=== PATIENT | male | born 1965 | race American Indian/Alaskan Native ===

== ENCOUNTER 2020-01-21 21:19 | Emergency (ER) | payer OTHER ==
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
[2020-01-22 00:20] VITALS: BP 150/90
== END 2020-01-22 00:19 | disposition left against medical advice (07) ==
LOC: ED 21:19
DX: M54.2 Cervicalgia (principal); M25.561 Pain in right knee; Z53.21 Procedure and treatment not carried out due to patient leaving prior to being seen by health care provider

== ENCOUNTER 2020-08-31 01:11 | Emergency (ER) | payer MEDICAID, OTHER ==
--- NOTE | 2020-08-31 01:19 | Event Note ---
ED Screening Note Date of service: 08/31/20 Time: 01:18 ED Screening Note: 5-year-old male presents to the ER today complaining of a 5-hour erection. Patient states that he goes to the clinic called [facility] where he gets ICI injections to help with erections. He states that you go as needed. He states that he had an injection this morning. He states that he recently started doing this about a week now and is never had any issues with priapism in the past. He denies any penile pain, testicular pain or swelling. This initial assessment/diagnostic orders/clinical plan/treatment(s) is/are subject to change based on patients health status, clinical progression and re- assessment by fellow clinical providers in the ED. Further treatment and workup at subsequent clinical providers discretion. Patient/guardian urged not to elope from the ED as their condition may be serious if not clinically assessed and managed. Initial orders include:
--- NOTE | 2020-08-31 01:37 | Emergency Department Report ---
ED General Adult HPI - General Chief complaint: Urogenital-Male Stated complaint: ERECTION X5HR PUI?: No Time Seen by Provider: 08/31/20 01:25 Source: patient, RN notes reviewed Mode of arrival: Ambulatory Limitations: No Limitations - History of Present Illness Initial comments: The patient was evaluated in the emergency department for symptoms described in the history of present illness. He/she was evaluated in the context of the global COVID-19 pandemic, which necessitated consideration that the patient might be at risk for infection with the virus that causes COVID-19. Institutional protocols and algorithms that pertain to the evaluation of patients at risk for COVID-19 are in a state of rapid change based on infor mation released by regulatory bodies including the CDC and federal and state organizations. These policies and algorithms were followed during the patient's care in the emergency department. Please note that these policies, procedures and recommendations changed on a rapid basis. The patient is a 55-year-old gentleman. He is not known to myself previously. He has a history of stroke, erectile dysfunction, and hypertension. Patient recently started going to [facility], and performed a self injected ICI injection at 4:00 PM yesterday. He does not know what medication he injected. He was not cleared for sex, or for this sort of intervention by her primary care doctor or urologist. He complains of persistent erection, and penile pain, without additional injuries or complaints. He denies additional complaints otherwise. -: hour(s) Location: genitals Quality: aching Consistency: constant Improves with: none Worsens with: none Associated Symptoms: denies other symptoms - Related Data Previous Rx's Medication Instructions Recorded Last Taken Type HYDROcodone/APAP 5-325 [[place] 1 each PO Q6HR PRN #10 tablet 03/17/15 Unknown Rx 5-325 mg TAB] Ibuprofen [Motrin 600 MG tab] 600 mg PO Q8H PRN #30 tablet 03/17/15 Unknown Rx Lisinopril/Hydrochlorothiazide 1 tab PO QDAY #30 tab 03/17/15 Unknown Rx [Zestoretic 20-25 mg] Simvastatin (Nf) [Zocor TAB] 20 mg PO QHS #30 tablet 03/17/15 Unknown Rx Allergies Allergy/AdvReac Type Severity Reaction Status Date / Time No Known Allergies Allergy Verified 01/21/20 21:54 ED Review of Systems ROS: Stated complaint: ERECTION X5HR Other details as noted in HPI Comment: All other systems reviewed and negative Genitourinary: as per HPI, other (Priapism/erection) ED Past Medical Hx - Past Medical History Previous Medical History?: Yes Hx Hypertension: Yes Hx CVA: Yes (old left side weakness) Additional medical history: Erectile Dysfunction - Surgical History Past Surgical History?: Yes Additional Surgical History: left ankle fx - Social History Smoking Status: Current Every Day Smoker Substance Use Type: None - Medications Home Medications: Home Medications Medication Instructions Recorded Confirmed Last Taken Type HYDROcodone/APAP 5-325 [[place] 1 each PO Q6HR PRN #10 tablet 03/17/15 Unknown Rx 5-325 mg TAB] Ibuprofen [Motrin 600 MG tab] 600 mg PO Q8H PRN #30 tablet 03/17/15 Unknown Rx Lisinopril/Hydrochlorothiazide 1 tab PO QDAY #30 tab 03/17/15 Unknown Rx [Zestoretic 20-25 mg] Simvastatin (Nf) [Zocor TAB] 20 mg PO QHS #30 tablet 03/17/15 Unknown Rx ED Physical Exam - General Limitations: No Limitations General appearance: alert, anxious - Head Head exam: Present: atraumatic, normocephalic - Eye Eye exam: Present: normal appearance, EOMI. Absent: nystagmus - ENT ENT exam: Present: normal exam, normal orophraynx, mucous membranes moist, normal external ear exam - Neck Neck exam: Present: normal inspection, full ROM. Absent: tenderness - Respiratory Respiratory exam: Present: normal lung sounds bilaterally. Absent: respiratory distress, wheezes, rales, rhonchi, stridor, decreased breath sounds - Cardiovascular Cardiovascular Exam: Present: regular rate, normal rhythm, normal heart sounds. Absent: bradycardia, tachycardia, irregular rhythm, systolic murmur, diastolic murmur, rubs, gallop - GI/Abdominal GI/Abdominal exam: Present: soft. Absent: distended, tenderness, guarding, rebound, rigid, pulsatile mass - Rectal Rectal exam: Present: deferred - exam: Present: normal inspection, other (Priapism is noted. Chaperoned by nurse Oneil) - Extremities Exam Extremities exam: Present: normal inspection, full ROM, other (2+ pulses noted in the bilateral upper and lower extremities. There is no palpable cord. negative Homans sign. Muscular compartments are soft. The pelvis is stable.). Absent: pedal edema, calf tenderness - Back Exam Back exam: Present: normal inspection, full ROM. Absent: tenderness, CVA tenderness (R), CVA tenderness (L), paraspinal tenderness, vertebral tenderness - Neurological Exam Neurological exam: Present: alert, normal gait, other (No facial droop. Tongue midline. Extraocular movements intact bilaterally. Facial sensation intact to light touch in V1, V2, V3 distribution bilaterally. 5 and a 5 strength in 4 extremities. Sensation intact to light touch in 4 extremities.) - Psychiatric Psychiatric exam: Present: anxious - Skin Skin exam: Present: warm, dry, intact, normal color. Absent: rash ED Course Vital Signs 08/31/20 01:15 Temperature 98.1 F Pulse Rate 82 Respiratory 16 Rate Blood Pressure 176/119 O2 Sat by Pulse 96 Oximetry - Reevaluation(s) Reevaluation #1: 08/31/20 01:43 Differential diagnosis, including but not limited to: Priapism Assessment and plan: 55-year-old gentleman, with priapism for approximately 10 hours. Received call back from Marya Zepeda, business representative of [facility]. She reports the patient was prescribed 10 units T-106 and nothing else we will treat with terbutaline, hydromorphone, and Sudafed. Have contacted [place] [facility] and am currently discussing the case with Papo patient has provided verbal and written informed consent for penile aspiration if priapism is refractory to medications. Conversation witnessed by nurse Oneil. [facility] [place] [facility] does not have any specific recommendations on this medication, as they are not familiar with it, it is not in the database, it did not show up on [facility], or on the Google search i have looked up the patients clinic: [email or web address] the website does not specify what medications were given or are available Reevaluation #2: 08/31/20 01:56 medication is paperverine and phentolamine/aloprostadil (trimix) as per communication from staff from clinic recontacted poison control center who recommend symptomatic supportive care they do not recommend a specific antidote but indicated that injection of alpha acting agents such as phenylepherine may be helpful In addition, patient was supposed to only administer 10 units of the trimix medication but apparently administered 20 units. 08/31/20 01:57 08/31/20 01:59 08/31/20 04:06 Patient was successfully detumescence with priapism aspiration. Please see procedure note. Dressing to be applied by nursing staff. Patient to follow-up with outpatient urology. I advised patient to avoid injection of ICI in the future. I also advised patient to avoid sexual activity until cleared to resume by a primary care doctor or urologist. - Penile Procedure Consent Obtained: verbal consent, written consent, emergent situation Time Out Performed: Yes Indication: priapism management Procedural Sedation: No Local Anesthesia Used: Penile Nerve Block Amount of Anesthesia Used (mls): 10 Priapism Management: aspiration (15 cc), phenylephrine injection (133) Complications: none Patient Tolerated Procedure: well Additional Comments: After written consent was obtained, with extensive discussion of risks, benefits, alternatives and complications, patient was given trial of conservativ e therapy with terbutaline x2, and Sudafed. This was unsuccessful. Therefore, we proceeded with corpus cavernosa aspiration. The area was prepped in typical aseptic fashion. A penile nerve block was performed using 1% lidocaine, 10 cc, with a 26-gauge needle. Then, we directed our attention to the right corpus cavernosum. At approximately 9:00, appropriate landmarks were identified, and a 20-gauge needle was inserted, with 12 cc aspiration of blood. We then injected 1 cc of phenylephrine solution. Right corpus cavernosum partially detumesced. Patient still erect, therefore, turned our attention to the left corpus cavernosum. At approximately 3:00, 20-gauge needle was inserted after appropriate identification of landmarks, and approximately 1 to 2 cc of phenylephrine solution were injected, and irrigated into the corpus cavernosum. Then, approximately 30 cc of blood were expressed. The patient experienced accessible detumescence of his priapism. The patient tolerated this procedure well. ED Medical Decision Making - Lab Data Vital Signs 08/31/20 01:15 Temperature 98.1 F Pulse Rate 82 Respiratory 16 Rate Blood Pressure 176/119 O2 Sat by Pulse 96 Oximetry Critical care attestation.: If time is entered above; I have spent that time in minutes in the direct care of this critically ill patient, excluding procedure time. ED Disposition Clinical Impression: Priapism, Elevated blood pressure reading Disposition: DC-01 TO HOME OR SELFCARE Is pt being admited?: No Does the pt Need Aspirin: No Condition: Good Instructions: Priapism, Hypertension, Adult Additional Instructions: Recommend that patient immediately discontinue all penile injections, intracavernosal injection ( TriMix or Papaverine, Phentolamine and Alprostadil is the trade and generic name respectively of the injectable medication), and not participate in sex until cleared to do so by a primary care doctor. Recommend follow-up with a urologist within the next 2 days. Recommend follow-up with a primary care doctor within the next week. Patient was found to have elevated blood pressure while here in the emergency room. Long-term complications of hypertension and elevated blood pressure include stroke, heart attack, disability, paralysis, loss of quality of life. Continuing to use the penile injection medication for erectile dysfunction May result in persistent/intractable priapism, which over time can cause sexual impotence, disability, and problems with urination. Please return to the emergency room right away with new pain, worsening pain, migration of pain, projectile vomiting, change in mental status, confusion, inability to tolerate liquid feeds, new, worsened or different symptoms not present on the initial emergency room evaluation. Referrals: SILVIO DAWN MD [Staff Physician] - 7-10 days [facility] [Provider Group] - 2-3 Days
[2020-08-31] MEDS ORDERED: TERBUTALINE 1 MG/1 ML INJ SUB-Q ONE ×2 (01:38→02:29)
[2020-08-31] MEDS ORDERED: HYDROmorphone 1 MG/1 ML INJ IM ONE (01:39)
[2020-08-31] MEDS ORDERED: PSEUDOEPHEDRINE 30 MG TAB PO ONE (01:39)
[2020-08-31] MEDS ORDERED: PHENYLEPHRINE 1 MG, SODIUM CHLORIDE P/F VIAL 10 ML 9.9 ML IJ**NOT IV ONE (02:41)
[2020-08-31] MEDS ORDERED: LIDOCAINE (1%) 10 MG/1 ML VIAL 20 ML MDV INFILTRATI ONE (02:41)
[2020-08-31] MEDS ORDERED: SODIUM CHLORIDE 0.9% IJ**NOT IV SCH (03:00)
[2020-08-31] MEDS ORDERED: PHENYLEPHRINE IJ**NOT IV SCH (03:00)
[2020-08-31] MEDS ORDERED: DEXTROSE 50% IN WATER (25GM) 50 ML SYRINGE IV ONE (03:13)
[2020-08-31 04:30] VITALS: BP 117/80
[2020-08-31] MEDS ORDERED: POVIDONE-IODINE OINTMENT 28.35 GM TP SCH (08:00)
== END 2020-08-31 04:30 | disposition home or self-care (01) ==
LOC: ED 01:11
DX: N48.30 Priapism, unspecified (principal); R03.0 Elevated blood-pressure reading, without diagnosis of hypertension; F17.200 Nicotine dependence, unspecified, uncomplicated; I10 Essential (primary) hypertension; Z79.899 Other long term (current) drug therapy; Z86.73 Personal history of transient ischemic attack (TIA), and cerebral infarction without residual deficits; Z98.890 Other specified postprocedural states
CPT/HCPCS: 54220; 96372; 99283; J1170; J2370; J3105

== ENCOUNTER 2020-09-23 22:28 | Emergency (ER) | payer MEDICAID ==
--- NOTE | 2020-09-23 23:02 | Event Note ---
ED Screening Note Date of service: 09/23/20 Time: 22:55 ED Screening Note: Pt is a 55 y/o aam who presents for priapism for past 5 hrs, states he took and otc ICM . pt states hx of same 1 month ago. pt took pseudoephedrine otc x one today states not improving. This initial assessment/diagnostic orders/clinical plan/treatment(s) is/are subject to change based on patients health status, clinical progression and re- assessment by fellow clinical providers in the ED. Further treatment and workup at subsequent clinical providers discretion. Patient/guardian urged not to elope from the ED as their condition may be serious if not clinically assessed and managed. Initial orders include:
[2020-09-24] MEDS ORDERED: TERBUTALINE 1 MG/1 ML INJ SUB-Q ONE (00:15)
[2020-09-24] MEDS ORDERED: PSEUDOEPHEDRINE 30 MG TAB PO ONE (00:15)
[2020-09-24] MEDS ORDERED: SODIUM CHLORIDE 0.9% 1000 ML 1,000 ML IV ONE (00:15)
--- NOTE | 2020-09-24 00:18 | Emergency Department Report ---
HPI - General Chief Complaint: Urogenital-Male Time Seen by Provider: 09/23/20 23:57 - HPI HPI: This is a 55-year-old male who presents to the emergency department with a complaint of having an erection for greater than 6 hours. The patient did an intracavernosal injection in order to have sexual intercourse. He says that he took some Sudafed with some transient relief but the erection returned. Because of the erection the patient has been having some difficulty with urination. Patient has a history of a CVA with some residual left-sided weakness and hypertension. The patient was here on 08/31/2020 for the same complaint of priapism. He required cavernosal aspiration and phenylephrine injection for resolution at that time. Patient is a tobacco smoker but denies any illicit drug use. No recent travel or sick contacts at home. He denies any current penile pain. ED Past Medical Hx - Past Medical History Previous Medical History?: Yes Hx Hypertension: Yes Hx CVA: Yes (old left side weakness) Additional medical history: Erectile Dysfunction - Surgical History Past Surgical History?: Yes Additional Surgical History: left ankle fx - Social History Smoking Status: Current Every Day Smoker Substance Use Type: None - Medications Home Medications: Home Medications Medication Instructions Recorded Confirmed Last Taken Type HYDROcodone/APAP 5-325 [[place] 1 each PO Q6HR PRN #10 tablet 03/17/15 Unknown Rx 5-325 mg TAB] Ibuprofen [Motrin 600 MG tab] 600 mg PO Q8H PRN #30 tablet 03/17/15 Unknown Rx Lisinopril/Hydrochlorothiazide 1 tab PO QDAY #30 tab 03/17/15 Unknown Rx [Zestoretic 20-25 mg] Simvastatin (Nf) [Zocor TAB] 20 mg PO QHS #30 tablet 03/17/15 Unknown Rx ED Review of Systems ROS: Stated complaint: MALE PROBLEM Other details as noted in HPI Comment: All other systems reviewed and negative Constitutional: denies: chills, fever Eyes: denies: eye pain, vision change ENT: denies: ear pain, throat pain Respiratory: denies: cough, shortness of breath Cardiovascular: denies: chest pain, palpitations Gastrointestinal: denies: abdominal pain, vomiting Genitourinary: other (priapism). denies: dysuria, discharge Musculoskeletal: denies: back pain, arthralgia Skin: denies: rash, lesions Neurological: denies: headache, weakness Physical Exam - Physical Exam Vital Signs: Vital Signs 09/23/20 23:20 Temperature 97.9 F Pulse Rate 98 H Respiratory 16 Rate Blood Pressure 161/112 O2 Sat by Pulse 98 Oximetry Physical Exam: GENERAL: The patient is well-developed well-nourished. HENT: Normocephalic. Atraumatic. Patient has moist mucous membranes. EYES: Extraocular motions are intact. NECK: Supple. Trachea is midline. CHEST/LUNGS: Clear to auscultation. There is no respiratory distress noted. HEART/CARDIOVASCULAR: Regular. There is no tachycardia. There is no murmur. ABDOMEN: Abdomen is soft, nontender. Patient has normal bowel sounds. SKIN: Skin is warm and dry. NEURO: The patient is awake, alert, and oriented. The patient is cooperative. The patient has no focal neurologic deficits. Normal speech. MUSCULOSKELETAL: There is no tenderness or deformity. There is no limitation range of motion. : Patient has priapism. ED Course Vital Signs 09/23/20 23:20 Temperature 97.9 F Pulse Rate 98 H Respiratory 16 Rate Blood Pressure 161/112 O2 Sat by Pulse 98 Oximetry - Reevaluation(s) Reevaluation #1: 09/24/20 01:36 The terbutaline and Sudafed did not help and/or resolve the patient's priapism. The patient would like to move forward with cavernosal aspiration. Risks of the procedure have been discussed with the patient. A dorsal penile nerve block has been done. I am waiting for the phenylephrine from pharmacy and then the patient will have cavernosal aspiration. - Nerve Block Consent Obtained: verbal consent Time Out Performed: Yes Local Anesthetic Used: Lidocaine 1% Amount of anesthesia used: 6 Nerve Blocks: other (Dorsal penile block) Procedure Successful: Yes Complications: none Patient Tolerated Procedure: well - Penile Procedure Consent Obtained: verbal consent Time Out Performed: Yes Indication: priapism management Procedural Sedation: No Local Anesthesia Used: Lidocaine 1% without EPI Amount of Anesthesia Used (mls): 6 Priapism Management: aspiration, phenylephrine injection Complications: none Patient Tolerated Procedure: well ED Medical Decision Making - Medical Decision Making This patient presents with priapism that has been lasting greater than 6 hours. He has a history of this previously. The patient was given some gentle IV fluid resuscitation, a dose of pseudoephedrine, and a subcutaneous injection of terbutaline. He was reevaluated about 30 to 45 minutes later with no improvement or resolution of his priapism. We then discussed the procedure of doing a dorsal penile block followed by a bilateral cavernosal aspiration and phenylephrine injection. All of the risks, the patient has a normal decision-making capacity, and I was given verbal consent to proceed. 3 mL of 1% lidocaine without epinephrine was injected at the 2:00 and 10:00 positions to the dorsal penis. The patient was rechecked about 10 minutes later and anesthesia was obtained with the nerve block. An 18-gauge needle was placed in the left lateral penile shaft, within the corpus cavernosum, at the 3 o'clock position. About 15 to 20 cc of blood was drained/aspirated. The corpus cavernosum was then flushed with 2 mL of phenylephrine. The process was repeated to the right lateral penile shaft, at the 9 o'clock position. Sterile procedure was used. The patient was reevaluated multiple times over the next 15 to 30 minutes and the patient had detumescence. The patient was reevaluated for another 30 minutes or so and there was no return of priapism. Vital signs have been reassuring throughout his ED course including being afebrile. The patient was instructed to monitor for any signs of infection. He was instructed to avoid any further intracavernosal injections and avoid any sexual intercourse or attempts at sexual arousal until follow-up with a urologist. He was given outpatient referral for Dr. Pena of [facility]. He will return to the emergency department with any worsening of his symptoms or with any acute distress. Critical Care Time: No Critical care attestation.: If time is entered above; I have spent that time in minutes in the direct care of this critically ill patient, excluding procedure time. ED Disposition Clinical Impression: Priapism Hypertension Qualifiers: Hypertension type: essential hypertension Qualified Code(s): I10 - Essential (primary) hypertension Disposition: TO HOME OR SELFCARE Is pt being admited?: No Condition: Stable Instructions: Priapism, Hypertension, Adult, Hypertension (ED) Additional Instructions: Please follow-up with a urologist in the next few days regarding your history of erectile dysfunction, your recurrent episodes of priapism (prolonged erection), and your use of intracavernosal injections. I have given you a referral for a local urologist, Dr. Pena. I recommend avoiding any intracavernosal injections or any sexual intercourse until follow-up with the urologist. Return to the emergency department with any worsening of your symptoms, new or concerning symptoms not addressed during this current emergency department visit, or with any acute distress. Referrals: PRIMARY CARE, [Primary Care Provider] - 2-3 Days MARIA EUGENIA PENA MD [Staff Physician] - 2-3 Days Time of Disposition: 02:32
[2020-09-24] MEDS ORDERED: PHENYLEPHRINE 1 MG, SODIUM CHLORIDE P/F VIAL 10 ML 9.9 ML IJ**NOT IV ONE (01:14)
[2020-09-24] MEDS ORDERED: LIDOCAINE (1%) 10 MG/1 ML VIAL 20 ML MDV INFILTRATI ONE (01:14)
[2020-09-24 04:15] VITALS: BP 141/94
== END 2020-09-24 03:10 | disposition home or self-care (01) ==
LOC: ED 22:28
DX: N48.30 Priapism, unspecified (principal); I10 Essential (primary) hypertension; F17.200 Nicotine dependence, unspecified, uncomplicated; Z98.890 Other specified postprocedural states; Z79.1 Long term (current) use of non-steroidal anti-inflammatories (NSAID); Z79.899 Other long term (current) drug therapy
CPT/HCPCS: 54220; 96360; 96361; 96372; 99282; J2370; J3105; J7030

== ENCOUNTER 2021-01-11 09:38 | Emergency (ER) | payer MEDICAID ==
[2021-01-11 11:07] VITALS: BP 149/98
[2021-01-11 11:48] LABS: Alanine Aminotransferase 18 units/L (7-56); BUN/Creatinine Ratio 11; Blood Urea Nitrogen 9 mg/dL (9-20); Calcium 9.5 mg/dL (8.4-10.2); Hemolysis Index 9
[2021-01-11 11:55] LABS: Basophils % (Auto) 0.5 % (0.0-1.8); Eosinophils # (Auto) 0.1 K/mm3 (0.0-0.4); Eosinophils % (Auto) 1.2 % (0.0-4.3); Hematocrit 40.9 % (35.5-45.6); Hemoglobin 14.2 gm/dl (11.8-15.2); Lymphocytes # (Auto) 1.1 K/mm3 (1.2-5.4); Lymphocytes % (Auto) 16.5 % (13.4-35.0); Mean Corpuscular HGB Conc 35 % (32-34); Mean Corpuscular Volume 96 fl (84-94); Monocytes # (Auto) 0.5 K/mm3 (0.0-0.8); Monocytes % (Auto) 7.7 % (0.0-7.3); Platelet Count 338 K/mm3 (140-440); Red Blood Count 4.25 M/mm3 (3.65-5.03); Red Cell Distribution Width 15.8 % (13.2-15.2)
[2021-01-11 12:03] LABS: Bilirubin,Urine NEG (Negative); Blood,Urine NEG (Negative); Color,Urine Amber (Yellow); Mucus,Urine 3+ /HPF
[2021-01-11] MEDS ORDERED: LIDOCAINE-MPF (1%) 10 MG/1 ML VIAL 5 ML INFILTRATI ONE (12:49)
--- NOTE | 2021-01-11 13:08 | Emergency Department Report ---
ED Male HPI - General Chief complaint: Skin Rash Stated complaint: RASH BETWEEN LEGS Time Seen by Provider: 01/11/21 11:09 Source: patient Mode of arrival: Ambulatory Limitations: No Limitations - History of Present Illness Initial comments: Patient is a 55-year-old male presents emergency room with complaints of a rash to the groin that began a week ago. He states it feels like itching and burning sensation and he has had a lot of moisture. He states he had a couple episodes of dysuria but that is since improved. He denies any penile discharge, pain or swelling in the testicles, fever, nausea, vomiting, diarrhea, abdominal pain. He denies any history of diabetes. Past medical history of CVA and hypertension. No allergies to medications. Patient states he has not been sexually active in approximately 3 months. - Related Data Previous Rx's Medication Instructions Recorded Last Taken Type HYDROcodone/APAP 5-325 [Colton 1 each PO Q6HR PRN #10 tablet 03/17/15 Unknown Rx 5-325 mg TAB] Ibuprofen [Motrin 600 MG tab] 600 mg PO Q8H PRN #30 tablet 03/17/15 Unknown Rx Lisinopril/Hydrochlorothiazide 1 tab PO QDAY #30 tab 03/17/15 Unknown Rx [Zestoretic 20-25 mg] Simvastatin (Nf) [Zocor TAB] 20 mg PO QHS #30 tablet 03/17/15 Unknown Rx Clotrimazole 1% [Lotrimin 1%] 1 applic TP BID #1 tube 01/11/21 Unknown Rx Doxycycline Hyclate [Doxycycline 100 mg PO BID 7 Days #14 tab 01/11/21 Unknown Rx Hyclate TAB] Allergies Allergy/AdvReac Type Severity Reaction Status Date / Time No Known Allergies Allergy Verified 01/21/20 21:54 ED Review of Systems ROS: Stated complaint: RASH BETWEEN LEGS Other details as noted in HPI Comment: All other systems reviewed and negative ED Past Medical Hx - Past Medical History Previous Medical History?: Yes Hx Hypertension: Yes Hx CVA: Yes (old left side weakness) Additional medical history: Erectile Dysfunction - Surgical History Past Surgical History?: Yes Additional Surgical History: left ankle fx - Social History Smoking Status: Current Every Day Smoker Substance Use Type: Alcohol - Medications Home Medications: Home Medications Medication Instructions Recorded Confirmed Last Taken Type HYDROcodone/APAP 5-325 [[place] 1 each PO Q6HR PRN #10 tablet 03/17/15 Unknown Rx 5-325 mg TAB] Ibuprofen [Motrin 600 MG tab] 600 mg PO Q8H PRN #30 tablet 03/17/15 Unknown Rx Lisinopril/Hydrochlorothiazide 1 tab PO QDAY #30 tab 03/17/15 Unknown Rx [Zestoretic 20-25 mg] Simvastatin (Nf) [Zocor TAB] 20 mg PO QHS #30 tablet 03/17/15 Unknown Rx Clotrimazole 1% [Lotrimin 1%] 1 applic TP BID #1 tube 01/11/21 Unknown Rx Doxycycline Hyclate [Doxycycline 100 mg PO BID 7 Days #14 tab 01/11/21 Unknown Rx Hyclate TAB] ED Physical Exam - General Limitations: No Limitations General appearance: alert, in no apparent distress - Head Head exam: Present: atraumatic, normocephalic - Eye Eye exam: Present: normal appearance - ENT ENT exam: Present: mucous membranes moist - Respiratory Respiratory exam: Absent: respiratory distress, accessory muscle use - GI/Abdominal GI/Abdominal exam: Present: soft. Absent: distended, tenderness, guarding, rebound, rigid - exam: Present: other (digital media sales consultant: hansa, tech, there are multiple erythematous shallow ulcerations present to the penile and scrotal skin, no testicular ttp, no scrotal edema, normal testicular lie, normal cremasteric reflex) - Neurological Exam Neurological exam: Present: alert, oriented X3 - Psychiatric Psychiatric exam: Present: normal affect, normal mood - Skin Skin exam: Present: warm, dry, intact ED Course Vital Signs 01/11/21 11:05 Temperature 98.8 F Pulse Rate 101 H Respiratory 20 Rate Blood Pressure 149/98 O2 Sat by Pulse 98 Oximetry ED Medical Decision Making - Lab Data Result diagrams: 01/11/21 11:15 01/11/21 11:15 Lab Results 01/11/21 01/11/21 01/11/21 Range/Units 11:15 11:15 11:15 WBC 6.8 (4.5-11.0) K/mm3 RBC 4.25 (3.65-5.03) M/mm3 Hgb 14.2 (11.8-15.2) gm/dl Hct 40.9 (35.5-45.6) % MCV 96 H (84-94) fl MCH 33 H (28-32) pg MCHC 35 H (32-34) % RDW 15.8 H (13.2-15.2) % Plt Count 338 (140-440) K/mm3 Lymph % (Auto) 16.5 (13.4-35.0) % Boyle % (Auto) 7.7 H (0.0-7.3) % Eos % (Auto) 1.2 (0.0-4.3) % Baso % (Auto) 0.5 (0.0-1.8) % Lymph # (Auto) 1.1 L (1.2-5.4) K/mm3 Boyle # (Auto) 0.5 (0.0-0.8) K/mm3 Eos # (Auto) 0.1 (0.0-0.4) K/mm3 Baso # (Auto) 0.0 (0.0-0.1) K/mm3 Seg Neutrophils % 74.1 H (40.0-70.0) % Seg Neutrophils # 5.0 (1.8-7.7) K/mm3 Sodium 138 (137-145) mmol/L Potassium 3.5 L (3.6-5.0) mmol/L Chloride 99.6 (98-107) mmol/L Carbon Dioxide 28 (22-30) mmol/L Anion Gap 14 mmol/L BUN 9 (9-20) mg/dL Creatinine 0.8 (0.8-1.3) mg/dL Estimated GFR > 60 ml/min BUN/Creatinine Ratio 11 % Glucose 151 H (75-100) mg/dL Calcium 9.5 (8.4-10.2) mg/dL Total Bilirubin 0.50 (0.1-1.2) mg/dL AST 16 (5-40) units/L ALT 18 (7-56) units/L Alkaline Phosphatase 72 (35-129) units/L Total Protein 8.0 (6.3-8.2) g/dL Albumin 4.0 (3.9-5) g/dL Albumin/Globulin Ratio 1.0 % Urine Color (Yellow) Urine Turbidity (Clear) Urine pH (5.0-7.0) Ur Specific [place] (1.003-1.030) Urine Protein (Negative) mg/dL Urine Glucose (UA) (Negative) mg/dL Urine Ketones (Negative) mg/dL Urine Blood (Negative) Urine Nitrite (Negative) Urine Bilirubin (Negative) Urine Urobilinogen (<2.0) mg/dL Ur Leukocyte Esterase (Negative) Urine WBC (Auto) (0.0-6.0) /HPF Urine RBC (Auto) (0.0-6.0) /HPF U Epithel Cells (Auto) (0-13.0) /HPF Urine Mucus /HPF Syphilis IgG Antibody Reactive A (NonReactive) RPR Titer 01/11/21 01/11/21 Range/Units 11:15 11:26 WBC (4.5-11.0) K/mm3 RBC (3.65-5.03) M/mm3 Hgb (11.8-15.2) gm/dl Hct (35.5-45.6) % MCV (84-94) fl MCH (28-32) pg MCHC (32-34) % RDW (13.2-15.2) % Plt Count (140-440) K/mm3 Lymph % (Auto) (13.4-35.0) % Boyle % (Auto) (0.0-7.3) % Eos % (Auto) (0.0-4.3) % Baso % (Auto) (0.0-1.8) % Lymph # (Auto) (1.2-5.4) K/mm3 Boyle # (Auto) (0.0-0.8) K/mm3 Eos # (Auto) (0.0-0.4) K/mm3 Baso # (Auto) (0.0-0.1) K/mm3 Seg Neutrophils % (40.0-70.0) % Seg Neutrophils # (1.8-7.7) K/mm3 Sodium (137-145) mmol/L Potassium (3.6-5.0) mmol/L Chloride (98-107) mmol/L Carbon Dioxide (22-30) mmol/L Anion Gap mmol/L BUN (9-20) mg/dL Creatinine (0.8-1.3) mg/dL Estimated GFR ml/min BUN/Creatinine Ratio % Glucose (75-100) mg/dL Calcium (8.4-10.2) mg/dL Total Bilirubin (0.1-1.2) mg/dL AST (5-40) units/L ALT (7-56) units/L Alkaline Phosphatase (35-129) units/L Total Protein (6.3-8.2) g/dL Albumin (3.9-5) g/dL Albumin/Globulin Ratio % Urine Color [place] (Yellow) Urine Turbidity Slightly-cloudy (Clear) Urine pH 5.0 (5.0-7.0) Ur Specific [place] 1.024 (1.003-1.030) Urine Protein 30 mg/dl (Negative) mg/dL Urine Glucose (UA) Neg (Negative) mg/dL Urine Ketones Neg (Negative) mg/dL Urine Blood Neg (Negative) Urine Nitrite Neg (Negative) Urine Bilirubin Neg (Negative) Urine Urobilinogen 4.0 (<2.0) mg/dL Ur Leukocyte Esterase Mod (Negative) Urine WBC (Auto) 57.0 H (0.0-6.0) /HPF Urine RBC (Auto) 12.0 (0.0-6.0) /HPF U Epithel Cells (Auto) 1.0 (0-13.0) /HPF Urine Mucus 3+ /HPF Syphilis IgG Antibody (NonReactive) RPR Titer 1:64 - Medical Decision Making Patient is a 55-year-old male presents emergency room with complaints of a rash to the groin that began a week ago. He states it feels like itching and burning sensation and he has had a lot of moisture. He states he had a couple episodes of dysuria but that is since improved. He denies any penile discharge, pain or swelling in the testicles, fever, nausea, vomiting, diarrhea, abdominal pain. He denies any history of diabetes. Past medical history of CVA and hypertension. No allergies to medications. Patient states he has not been sexually active in approximately 3 months. Vitals are stable. On exam:digital media sales consultant: audrey santo, there are multiple erythematous shallow ulcerat ions present to the penile and scrotal skin, no testicular ttp, no scrotal edema, normal testicular lie, normal cremasteric reflex. Patient's lab significant for positive syphilis IgG. UA shows evidence of white blood cells and leukocyte esterase. Patient given 1 g ceftriaxone IM and given penicillin G benzathine while in the emergency department. Discussed all results with patient and discussed the importance of health department follow-up. Patient given prescription for doxycycline and clotrimazole. Advised patient Please use medication as prescribed. Please follow-up with the health department. Return to emergency room for any new or worsening symptoms. Critical care attestation.: If time is entered above; I have spent that time in minutes in the direct care of this critically ill patient, excluding procedure time. ED Disposition Clinical Impression: Syphilis UTI (urinary tract infection) Qualifiers: Urinary tract infection type: acute cystitis Hematuria presence: without hematuria Qualified Code(s): N30.00 - Acute cystitis without hematuria Disposition: TO HOME OR SELFCARE Is pt being admited?: No Does the pt Need Aspirin: No Condition: Stable Instructions: Syphilis, Urinary Tract Infection, Adult Additional Instructions: Please use medication as prescribed. Please follow-up with the health department. Return to emergency room for any new or worsening symptoms. Prescriptions: Doxycycline Hyclate [Doxycycline Hyclate TAB] 100 mg PO BID 7 Days #14 tab Clotrimazole 1% [Lotrimin 1%] 1 applic TP BID #1 tube Referrals: [facility] [Outside] - 2-3 Days Time of Disposition: 13:58 Print Language: AMHARIC
[2021-01-11] MEDS ORDERED: PENICILLIN G BENZATHINE 1.2 MILLION UNIT/2 ML INJ IM ONE (13:55)
== END 2021-01-11 14:37 | disposition home or self-care (01) ==
LOC: ED 09:38
DX: A53.9 Syphilis, unspecified (principal); N39.0 Urinary tract infection, site not specified; I10 Essential (primary) hypertension; F17.200 Nicotine dependence, unspecified, uncomplicated; Z79.899 Other long term (current) drug therapy; Z86.73 Personal history of transient ischemic attack (TIA), and cerebral infarction without residual deficits; Z98.890 Other specified postprocedural states
CPT/HCPCS: 36415; 80053; 81001; 85025; 86592; 86593; 87086; 96372; 99283; J0561; J0696

== ENCOUNTER 2021-02-12 20:26 | Emergency (ER) | payer MEDICAID | END 2021-02-12 20:31 | disposition left against medical advice (07) | LOC: ED 20:26 | DX: N48.30 Priapism, unspecified (principal); Z53.21 Procedure and treatment not carried out due to patient leaving prior to being seen by health care provider ==